=== PATIENT | female | born 1970 | race Two or more races ===

== ENCOUNTER 2017-01-13 06:31 | Emergency (ER) | payer OTHER ==
[2017-01-13] MEDS ORDERED: PREDNISONE 20 MG TABLET ONE (07:39)
[2017-01-13] MEDS ORDERED: ALBUTEROL/IPRATROPIUM 2.5/0.5 MG 3 ML/EACH DOSE ONE (07:41)
--- NOTE | 2017-01-13 07:55 | RAD ---
EXAMINATION:CHEST - 2 VIEWS CLINICAL INDICATION: Cough for 2 days COMPARISON: 04/03/2013 FINDINGS: The cardiomediastinal silhouette is within normal limits. There is no adenopathy identified. There is no pleural effusion. The lungs are clear. The osseous structures are unremarkable for age. IMPRESSION: Negative PA and lateral views of the chest. No acute cardiopulmonary process is identified.
== END 2017-01-13 09:31 | disposition home or self-care (01) ==
LOC: ED 06:31
DX: J98.01 Acute bronchospasm (principal); E11.9 Type 2 diabetes mellitus without complications; I10 Essential (primary) hypertension; E78.5 Hyperlipidemia, unspecified; E78.00 Pure hypercholesterolemia, unspecified; F17.210 Nicotine dependence, cigarettes, uncomplicated; Z79.84 Long term (current) use of oral hypoglycemic drugs